=== PATIENT | female | born 1930 | race Caucasian/White ===

== ENCOUNTER 2016-09-29 15:14 | Emergency (ER) | payer MEDICARE ==
--- NOTE | 2016-09-29 15:49 | CT ---
HEAD W/O CON History: Ground level fall. On Coumadin. Comparison: None. Procedure: 1 mm axial images were obtained through the head from the vertex to the base of the skull without intravenous contrast. Stacked reconstructed 5 mm images were then obtained in the axial, coronal and sagittal planes. Findings: The lateral ventricles, cerebral sulci and sylvian fissures are mildly prominent. No evidence of midline shift is seen. No mass or mass effect is identified. No evidence of intra or extra-axial fluid collections or hemorrhage is seen. There are mild periventricular deep white matter low-attenuation changes suggested. The basilar cisterns are uneffaced. The posterior fossa structures are unremarkable. Bone windows demonstrate fluid within the dependent aspects of both maxillary sinuses. No discrete calvarial fracture is observed. Impression: 1. Mild diffuse cerebral atrophy. 2. No evidence of acute intracranial hemorrhage. 3. Periventricular deep white matter low-attenuation changes most consistent with small vessel ischemia considering patient age. 4. Maxillary sinus disease.
--- NOTE | 2016-09-29 15:55 | CT ---
C-SPINE W/O CON History: Ground-level fall. Procedure: 1 mm axial images were obtained through the cervical spine from the base of the skull to T1 with stacked reconstructed 2 mm images photographed in the axial, coronal and sagittal planes. Comparison: None. Findings: The osseous structures are intact without evidence of a discrete fracture. The alignment is normal. No significant subluxation is visualized. The facets align appropriately without evidence of a perched or jumped facet. The spinous processes appear to be intact. No prevertebral soft tissue swelling is observed. The pre-dens space is not widened. The odontoid process is intact. The thyroid gland and the visualized lung apices appear to be normal. There is biapical pleural scarring suggested. Multilevel mid cervical spondylosis changes are present with slight retrolisthesis of C5. There is partial fusion of the posterior uncinate processes at C2-3 and C3-4. Impression: 1. No definitive fracture visualized. 2. Multilevel cervical spondylosis changes with slight retrolisthesis of C5 and straightening of the normal cervical lordosis. 3. Partial fusion of the posterior uncinate processes at C2-3 and C3-4. 4. Dense calcification of both carotid bulbs. 5. Biapical pleural scarring.
--- NOTE | 2016-09-29 15:57 | RAD ---
SHOULDER-RIGHT 2 OR MORE VIEWS History: Ground-level fall. Comparison: None. Findings: There is evidence of diffuse bony osteopenia. The acromiohumeral distance is relatively well-maintained. There is soft tissue ossification seen within the expected location of the distal rotator cuff. There is lysis of the distal right clavicle which may be due to remote trauma. Included portions of the right lung field are within expected. Impression: 1. Bony osteopenia. 2. No definitive acute fracture visualized. 3. Findings most consistent with calcific tendinitis of the distal rotator cuff. 4. Lysis of the distal right clavicle which may be due to remote trauma.
[2016-09-29 16:01] LABS: ABSOLUTE NEUTROPHIL COUNT 7.5 K/mm3 (1.8-7.7); BASO % 0.3 % (0.2-1.0); EOS # 0.1 (0.0-0.5); EOS % 0.7 % (0.9-2.9); HEMATOCRIT 39.5 % (37.0-47.0); HEMOGLOBIN 12.9 gm/l (12.0-16.0); IMM NEUT # 0.1 K/mm3 (0-0.2); IMM NEUT% 1.2 % (0-1); LYMPH # 0.9 (1.0-4.8); LYMPH % 10.3 % (15-45); MEAN CELL VOLUME 105.1 fl (81.0-99.0); MEAN CORPUSCULAR HEMOGLOBIN 34.3 pg (27.0-31.0); MEAN CORPUSCULAR HGB CONC 32.7 g/dl (33.0-37.0); MEAN PLATELET VOLUME 9.6 fl (7.4-10.4); MONO # 0.3 (0.0-0.8); MONO % 3.1 % (4-12); NEUT % 84.4 % (43-75); PLATELET COUNT 221 K/mm3 (130-400); RED CELL DISTRIBUTION WIDTH 14.9 % (11.5-14.5)
[2016-09-29 16:19] LABS: INR 2.5; PROTHROMBIN TIME 27.5 SECONDS (9.3-11.4)
[2016-09-29 16:21] LABS: ALB/GLOB RATIO 1.5 (>1.0); ALBUMIN 3.8 gm/dL (3.5-5.7); CALCIUM 9.2 mg/dL (8.6-10.3)
== END 2016-09-29 16:56 | disposition home or self-care (01) ==
LOC: ED 15:14
DX: S00.93XA Contusion of unspecified part of head, initial encounter (principal); M25.511 Pain in right shoulder; M47.812 Spondylosis without myelopathy or radiculopathy, cervical region; I48.91 Unspecified atrial fibrillation; Z79.01 Long term (current) use of anticoagulants; W01.0XXA Fall on same level from slipping, tripping and stumbling without subsequent striking against object, initial encounter; Y93.01 Activity, walking, marching and hiking; Y92.9 Unspecified place or not applicable